=== PATIENT | male | born 1960 | race Caucasian/White ===

== ENCOUNTER 2016-07-02 10:46 | Inpatient (IN) | payer OTHER ==
[2016-07-02 11:38] LABS: BASOPHIL 0.5 % (0-2); EOSINOPHIL 0.4 % (0-5); HGB 11.4 g/dl (13.2-18.0); LYMPHOCYTE 12.3 % (15-48); MCH 28.3 pg (25.0-31.0); MCHC 33.5 g/dL (32.0-36.0); MCV 84.4 fL (78.0-100.0); NEUTROPHIL 78.8 % (41-80); PLT 373 K/uL (150-400); RBC 4.03 M/uL (4.70-6.00); RDW 12.9 % (11.5-14.0); WBC 9.7 K/uL (4.0-10.5)
[2016-07-02 11:43] LABS: BILIRUBIN NEGATIVE (NEGATIVE); BLOOD NEGATIVE Ery/uL (NEGATIVE); CLARITY CLEAR (CLEAR); COLOR YELLOW (YELLOW); GLUCOSE (U) 3+ mg/dL (NORMAL); KETONE (U) NEGATIVE (NEGATIVE); LEUKOCYTES NEGATIVE Leu/uL (NEGATIVE); NITRITE NEGATIVE (NEGATIVE); PROTEIN NEGATIVE (NEGATIVE); SPECIFIC GRAVITY <=1.005 (1.001-1.030); UROBILINOGEN 0.2 mg/dL (0.2-1.0); pH 5.5 (5.0-9.0)
[2016-07-02 11:52] LABS: AMPHETAMINES NEGATIVE (NEGATIVE); BARBITURATES NEGATIVE (NEGATIVE); BENZODIAZEPINES NEGATIVE (NEGATIVE); COCAINE NEGATIVE (NEGATIVE); MARIJUANA (THC) NEGATIVE (NEGATIVE); METHADONE NEGATIVE (NEGATIVE); TRICYCLIC ANTIDEPRESSANT NEGATIVE (NEGATIVE)
[2016-07-02 11:55] LABS: CREATININE 0.8 mg/dL (0.7-1.2); POTASSIUM 4.9 mmol/L (3.5-5.1)
[2016-07-02 13:18] LABS: ALBUMIN 4.5 g/dL (3.5-5.0); BILIRUBIN - DIRECT 0.2 mg/dL (0.0-0.2); BILIRUBIN - TOTAL 0.4 mg/dL (0.1-1.0); GLOBULIN (CALCULATION) 3.9 g/dL (2.2-4.2); TOTAL PROTEIN 8.4 g/dL (6.4-8.3)
[2016-07-02 14:14] LABS: INR 1.03 (0.9-1.2); PROTHROMBIN TIME 13.1 SECONDS (11.7-14.0); PTT 24.1 SECONDS (23.2-31.4)
[2016-07-02 16:19] LABS: CREATININE 0.6 mg/dL (0.7-1.2); MAGNESIUM 2.33 mg/dL (1.40-2.10); POTASSIUM 3.6 mmol/L (3.5-5.1)
[2016-07-02 22:22] LABS: CREATININE 0.5 mg/dL (0.7-1.2); POTASSIUM 3.7 mmol/L (3.5-5.1)
[2016-07-03 04:16] LABS: BASOPHIL 0.4 % (0-2); EOSINOPHIL 1.5 % (0-5); HCT 29.4 % (42.0-52.0); HGB 9.9 g/dl (13.2-18.0); LYMPHOCYTE 22.9 % (15-48); MCH 28.7 pg (25.0-31.0); MCHC 33.7 g/dL (32.0-36.0); MCV 85.2 fL (78.0-100.0); MONOCYTE 7.6 % (0-12); MPV 9.5 fL (6.0-9.5); NEUTROPHIL 67.6 % (41-80); PLT 301 K/uL (150-400); RBC 3.45 M/uL (4.70-6.00); RDW 13.2 % (11.5-14.0); WBC 9.3 K/uL (4.0-10.5)
[2016-07-03 04:24] LABS: CREATININE 0.5 mg/dL (0.7-1.2); POTASSIUM 3.8 mmol/L (3.5-5.1)
[2016-07-03 10:21] LABS: CREATININE 0.5 mg/dL (0.7-1.2); POTASSIUM 3.6 mmol/L (3.5-5.1)
[2016-07-03] MEDS ORDERED: PROTONIX 40MG T40 MG PO (13:35)
[2016-07-03] MEDS ORDERED: FLOMAX0.4 MG PO (13:35)
[2016-07-03] MEDS ORDERED: LOVENOX40 MG/0.4 SQ (13:35)
[2016-07-03] MEDS ORDERED: ASPIRIN EC325 MG PO (13:36)
[2016-07-03] MEDS ORDERED: HABITROL14 MG PO (13:36)
[2016-07-03] MEDS ORDERED: PEPCID IV (13:36)
[2016-07-03] MEDS ORDERED: NORVASC5 MG PO (13:36)
[2016-07-03] MEDS ORDERED: GLUCOPHAGE1000 MG PO (13:37)
[2016-07-03] MEDS ORDERED: HUMULIN R100 UNIT/1 SC (13:37)
[2016-07-03 14:26] LABS: IRON 70 ug/dL (44-196); IRON % SATURATION 29 %SAT (20-50); TIBC (TOTAL IRON + UIBC) 241 U/L (228-428); UIBC 171 ug/dL (112-346)
[2016-07-04 04:38] LABS: BASOPHIL 0.5 % (0-2); EOSINOPHIL 1.6 % (0-5); HCT 31.1 % (42.0-52.0); HGB 10.3 g/dl (13.2-18.0); LYMPHOCYTE 24.6 % (15-48); MCH 28.4 pg (25.0-31.0); MCHC 33.1 g/dL (32.0-36.0); MCV 85.7 fL (78.0-100.0); MONOCYTE 7.8 % (0-12); MPV 8.9 fL (6.0-9.5); NEUTROPHIL 65.5 % (41-80); PLT 293 K/uL (150-400); RBC 3.63 M/uL (4.70-6.00); RDW 13.4 % (11.5-14.0); WBC 7.3 K/uL (4.0-10.5)
[2016-07-04 04:54] LABS: CREATININE 0.6 mg/dL (0.7-1.2); MAGNESIUM 1.87 mg/dL (1.40-2.10); POTASSIUM 3.7 mmol/L (3.5-5.1)
[2016-07-04] MEDS ORDERED: TERAZOSIN 2 MG C2 MG PO (11:03)
[2016-07-04] MEDS ORDERED: CREON DR 24,001 EACH PO (11:07)
[2016-07-04] MEDS ORDERED: FOLIC ACID1 MG PO (11:07)
[2016-07-04] MEDS ORDERED: GLUCOTROL5 MG PO (11:08)
[2016-07-04] MEDS ORDERED: DEBROX15 ML AU (11:08)
== END 2016-07-04 12:10 | disposition home or self-care (01) | DRG 637 ==
LOC: FER 10:46 → FICU 13:50
PROVIDERS: Emergency Medicine; ADMIT Internal Medicine
DX: E11.00 Type 2 diabetes mellitus with hyperosmolarity without nonketotic hyperglycemic-hyperosmolar coma (NKHHC) (principal); G93.41 Metabolic encephalopathy; E46 Unspecified protein-calorie malnutrition; Z68.1 Body mass index [BMI] 19.9 or less, adult; F10.10 Alcohol abuse, uncomplicated; F19.10 Other psychoactive substance abuse, uncomplicated; N40.0 Benign prostatic hyperplasia without lower urinary tract symptoms; D63.8 Anemia in other chronic diseases classified elsewhere; F17.200 Nicotine dependence, unspecified, uncomplicated; Z91.14 Patient's other noncompliance with medication regimen
CPT/HCPCS: 36415; 36600; 70450; 71010; 80048; 80076; 80305; 81003; 82009; 82140; 82607; 82746; 82803; 82962; 83036; 83540; 83550; 83605; 83690; 83735; 85025; 85044; 85610; 85730; 97116; 97162; 97166; 97530; 97530-GP; G0480; J2405; J3360